=== PATIENT | female | born 1955 | race Caucasian/White ===

== ENCOUNTER 2017-02-02 18:09 | Emergency (ER) | payer BC ==
[2017-02-02] MEDS ORDERED: Amoxicillin/Clavulanate TAB* 875 MG PO ONE (19:34)
[2017-02-02] MEDS ORDERED: Ibuprofen TAB* 600 MG PO ONE (19:34)
--- NOTE | 2017-02-02 19:41 | UC ---
Respiratory Complaint HPI - HPI Summary HPI Summary: 61 year old female with history of thyroid dx here with complaint of sinus congestions, headache and cough. Symptoms started 3 days ago. +flu. She tested negative for the flu few days ago. Now gradual onset headache for the past two days relieved with tylenol. Rhinorrhea - History of Current Complaint Chief Complaint: UCHeadache Stated Complaint: HEAD ACHE Time Seen by Provider: 02/02/17 19:26 Hx Obtained From: Patient Onset/Duration: Gradual Onset Character: Cough: Productive Associated Signs And Symptoms: Positive: Chills, URI - Allergies/Home Medications Allergies/Adverse Reactions: Allergies Allergy/AdvReac Type Severity Reaction Status Date / Time Iodinated Contrast Media Allergy Intermediate Itching Verified 02/02/17 18:48 [IV CONTRAST DYE] Home Medications: Home Medications Acetaminophen [Mapap] 500 mg PO ONCE PRN 02/02/17 [History Confirmed 02/02/17] Turmeric (Curcuma Longa) (Bulk [Turmeric] 1 pow XX DAILY 02/02/17 [History Confirmed 02/02/17] PMH/Surg Hx/FS Hx/Imm Hx - Surgical History Surgical History: Yes Surgery Procedure, Year, and Place: C-SECTIONS, RIGHT NEPHRECTOMY - Social History Alcohol Use: None Substance Use Type: None Smoking Status (MU): Never Smoked Tobacco Review of Systems Constitutional: Negative, Chills, Fatigue Skin: Negative Eyes: Negative ENT: Negative, Sinus Congestion, Sinus Pain/Tenderness Respiratory: Negative, Cough Cardiovascular: Negative Gastrointestinal: Negative Genitourinary: Negative Motor: Negative Neurovascular: Negative Musculoskeletal: Negative, Myalgia Neurological: Negative, Headache Psychological: Negative All Other Systems Reviewed And Are Negative: Yes Physical Exam Triage Information Reviewed: Yes Appearance: Well-Appearing, No Pain Distress, Well-Nourished Vital Signs: Initial Vital Signs Temp 37.4 C 02/02/17 18:43 Pulse 102 02/02/17 18:43 Resp 16 02/02/17 18:43 BP 137/64 02/02/17 18:43 Pulse Ox 98 02/02/17 18:43 Eye Exam: Normal ENT: Positive: Normal ENT inspection, Sinus tenderness Neck exam: Normal Neck: Positive: Supple, Nontender, No Lymphadenopathy Respiratory: Positive: Chest non-tender, Lungs clear, Normal breath sounds, No respiratory distress Cardiovascular: Positive: RRR - tachy, No Murmur Abdominal Exam: Normal Abdomen Description: Positive: Nontender Neurological Exam: Normal Neurological: Positive: Alert, Muscle Tone Normal, Fatigued UC Diagnostic Evaluation - Laboratory O2 Sat by Pulse Oximetry: 98 Respiratory Course/Dx - Course Course Of Treatment: rhinosinusitis - Differential Dx/Diagnosis Provider Diagnoses: Rhinosinusitis. Patient well appearing, non-toxic Discharge - Discharge Plan Condition: Good Disposition: HOME Patient Education Materials: Rhinosinusitis (ED) Referrals: Lazara Galeano NP [Primary Care Provider] -
[2017-02-02 19:48] VITALS: BP 103/63
== END 2017-02-02 19:54 | disposition home or self-care (01) ==
LOC: UCEAST 18:09
DX: J32.9 Chronic sinusitis, unspecified (principal); E07.9 Disorder of thyroid, unspecified; Z90.5 Acquired absence of kidney; Z91.041 Radiographic dye allergy status
CPT/HCPCS: 99212; A9270-GY; G0463

== ENCOUNTER 2019-05-14 12:01 | Day surgery (SDC) | payer BC ==
[~2019-05-14 12:01] MED LIST: Buffered Lidocaine 1% SYRIN* 1 ML/SYRINGE INTRADERM ONE
[2019-05-14] MEDS ORDERED: fentaNYL* 50 MCG/ML 2 ML VIAL (100 MCG VIAL) ONE ×3 (12:08→16:03)
[2019-05-14] MEDS ORDERED: Dexamethasone IV* 4 MG/ML 1 ML (4 MG) ONE (12:08)
[2019-05-14] MEDS ORDERED: Ondansetron INJ* 2 MG/ML VIAL ONE (12:08)
[2019-05-14] MEDS ORDERED: Glycopyrrolate IV* 0.2 MG/ML 1 ML VIAL ONE (12:08)
[2019-05-14] MEDS ORDERED: Midazolam* 1 MG/ML 2 ML VIAL (2 MG) ONE (12:08)
[2019-05-14] MEDS ORDERED: Propofol* 10 MG/ML 20 ML BTL ONE (12:08)
[2019-05-14] MEDS ORDERED: Sevoflurane* BOTTLE ONE (12:36)
[2019-05-14] MEDS ORDERED: ceFAZolin 2 GM PREMIX in ORs 2 GM/50 ML BAG ONE (12:40)
[2019-05-14] MEDS: Lactated Ringers 1000 ML Bag* 1,000 ML IV SCH ×2 (12:56→15:52)
[2019-05-14] MEDS ORDERED: Bupivacaine 0.25% SDV* 30 ML ONE (13:01)
[2019-05-14] MEDS ORDERED: Acetaminophen IV 1GM/100ML * 100 ML ONE (13:50)
[2019-05-14] MEDS ORDERED: oxyCODONE TAB* 5 MG TAB PO PRN (14:03)
[2019-05-14] MEDS ORDERED: Naloxone* 0.4 MG/ML 1 ML VIAL IV PRN (14:03)
[2019-05-14] MEDS ORDERED: Sugammadex * 500 MG/5 ML VIAL IV PUSH ONE (14:58)
[2019-05-14] MEDS: fentaNYL* 50 MCG/ML 2 ML VIAL (100 MCG VIAL) IV PRN ×6 (15:27→16:45)
[2019-05-14] MEDS ORDERED: fentaNYL* 50 MCG/ML 2 ML VIAL (100 MCG VIAL) IV PRN (16:50)
[2019-05-14] MEDS ORDERED: oxyCODONE TAB* 5 MG TAB ONE (16:55)
[2019-05-14 20:54] VITALS: BP 132/75
--- NOTE | 2019-05-16 10:45 | OP ---
CC: Lazara Galeano NP * DATE OF OPERATION: 05/14/19 - [facility] DATE OF : 57 SURGEON: Alvin Gomez MD CHEMISTRY MANAGER: Jen Ramos NP ANESTHESIOLOGIST: Dr. Mcclelland. ANESTHESIA: General endotracheal. PRE-OP DIAGNOSIS: Symptomatic cholelithiasis. POST-OP DIAGNOSIS: Symptomatic cholelithiasis. OPERATIVE PROCEDURE: Robotic cholecystectomy. ESTIMATED BLOOD LOSS: Minimal. IV FLUIDS: Crystalloid. SPECIMEN: Gallbladder contents. DRAINS: None. COMPLICATIONS: None. COUNTS: Instrument, needle and sponge counts correct. DESCRIPTION OF PROCEDURE: The patient was brought to the operating room and placed on the table supine. Sequential compression devices were placed on both lower extremities. General anesthesia was administered. She was positioned and padded appropriately and she was prepped and draped in the usual sterile fashion. She received appropriate intravenous antibiotics. A time-out was performed. Local anesthetic was infiltrated into the skin and soft tissue prior to making each incision. Entry into the abdomen was through a left upper quadrant incision accommodating an 8 mm optical trocar. After inserting the laparoscope , there were noted to be adhesions of omentum across the upper abdomen due to the patient's prior surgery. Additional 8 mm trocars were placed, one in the umbilicus and two additional in line with the umbilicus toward the right upper quadrant. The robot was docked. Adhesiolysis was performed using a combination of sharp dissection and cautery. The gall-bladder was identified. There were adhesions of omentum and duodenum to the gallbladder. The gallbladder fundus was grasped and retracted cephalad. The adhesions were taken down using sharp dissection. The infundibulum of the gallbladder was identified. The peritoneum investing this was incised and peeled away using a combination of sharp and blunt dissection. The dissection proceeded on the medial and lateral aspects of the gallbladder and the medial-sided node of Calot was taken down and the cystic artery was identified. The cystic artery and the cystic duct were each dissected out and critical view was obtained. Cystic duct was clipped and divided. The cystic artery was bipolar coagulated and then divided. The gallbladder was then freed from attachments to the liver , staying in an avascular plane using cautery and sharp dissection. Most of the gallbladder was freed. It was placed into an endoscopic retrieval bag. In order to retrieve the gallbladder, the left upper quadrant port site was used due to the fact that this was within the patient's previous scar. The scar was extended in order to allow extraction of the gallbladder, which had a 2 cm stone. Subsequently, the port site was closed with 0 Vicryl in interrupted fashion to approximate the muscle and fascia in one layer. The remaining ports and the carbon dioxide were released and removed under direct visualization. Skin incisions were all closed with 4-0 Monocryl in subcuticular fashion and DermaFlex applied. The patient tolerated this procedure well, was extubated and transferred to Recovery in stable condition. [id number]/[facility] #: [id number] [facility]
== END 2019-05-14 19:00 | disposition home or self-care (01) ==
LOC: OR 12:01
PROVIDERS: ATTEND Surgery
DX: K80.10 Calculus of gallbladder with chronic cholecystitis without obstruction (principal); R39.15 Urgency of urination; E03.9 Hypothyroidism, unspecified; R10.2 Pelvic and perineal pain; F41.1 Generalized anxiety disorder; M15.9 Polyosteoarthritis, unspecified; E66.9 Obesity, unspecified; K58.9 Irritable bowel syndrome, unspecified; Z85.528 Personal history of other malignant neoplasm of kidney; Z90.5 Acquired absence of kidney; Z68.34 Body mass index [BMI] 34.0-34.9, adult; Z91.041 Radiographic dye allergy status
CPT/HCPCS: 88304; A9270-GY; J0690; J1100; J2250; J2405; J2704; J3010; J3490